=== PATIENT | male | born 1950 | race Caucasian/White ===

== ENCOUNTER → 2017-03-07 | Outpatient (CLI) | payer MEDICARE, BC ==
[~2017-03-07] MED LIST: ARTHROTEC 751 TABLET PO; ASPIR 8181 M1 PO; DILAUDID2 MG PO; DULCOLAX5 MG PO; Dilaudid PO; METHYLPREDNISOLONE 4 MG; Miralax, Glycolax PO; NEXIUM40 MG PO; OXYCODONE-APAP1 EACH PO; PERCOCET 10/1 TABLET PO; PREDNISONE 60 MG PO; Senokot S,Pericolace PO; TYLENOL REGULA325 MG PO; VALIUM5 MG PO; ZANAFLEX4 M1 PO
== END | disposition home or self-care (01) ==
LOC: CDC 09:01
DX: Z01.810 Encounter for preprocedural cardiovascular examination (principal); G56.01 Carpal tunnel syndrome, right upper limb
CPT/HCPCS: 93000